=== PATIENT | female | born 1995 | race Caucasian/White ===

== ENCOUNTER 2017-03-19 17:00 | Emergency (ER) | payer OTHER ==
[2017-03-19 17:16] VITALS: BP 126/76
--- NOTE | 2017-03-19 17:31 | PHYS DOC ---
Adult General Chief Complaint Chief Complaint: WRIST PAIN HPI HPI 21-year-old female patient states she moved a heavy box 5 days ago while she was at work and her wrist was bending over and since then she has pain that does not getting better and her pain increased with movement of allergies. Patient denies neuro deficit and other injuries. Review of Systems Review of Systems Constitutional: Denies fever or chills [] Eyes: Denies change in visual acuity, redness, or eye pain [] HENT: Denies nasal congestion or sore throat [] Respiratory: Denies cough or shortness of breath [] Cardiovascular: No additional information not addressed in HPI [] GI: Denies abdominal pain, nausea, vomiting, bloody stools or diarrhea [] : Denies dysuria or hematuria [] Musculoskeletal: Reports joint pain [] Integument: Denies rash or skin lesions [] Neurologic: Denies headache, focal weakness or sensory changes [] Endocrine: Denies polyuria or polydipsia [] All other systems were reviewed and found to be within normal limits, except as documented in this note. Physical Exam Physical Exam Constitutional: Well developed, well nourished,mild distress, non-toxic appearance. [] HENT: Normocephalic, atraumatic, bilateral external ears normal, oropharynx moist, no oral exudates, nose normal. [] Eyes: PERRLA, EOMI, conjunctiva normal, no discharge. [] Neck: Normal range of motion, no tenderness, supple, no stridor. [] Cardiovascular:Heart rate regular rhythm, no murmur [] Lungs & Thorax: Bilateral breath sounds clear to auscultation [] Skin: Warm, dry, no erythema, no rash. [] Extremities: No tenderness, no deformity of right wrist , ROM intact, no edema. [] Neurologic: Alert and oriented X 3, normal motor function, normal sensory function, no focal deficits noted. [] Psychologic: Affect normal, judgement normal, mood normal. [] EKG EKG [] Radiology/Procedures Radiology/Procedures [] Course & Med Decision Making Course & Med Decision Making Pertinent Imaging studies reviewed. (See chart for details) right wrist without Fx Velcro wrist splint applied by ER nurse [] Dragon Disclaimer Dragon Disclaimer This electronic medical record was generated, in whole or in part, using a voice recognition dictation system. Departure Departure: Impression: Primary Impression: Strain of wrist, right Disposition: 01 HOME, SELF-CARE (At 1742) Condition: STABLE VAZQUEZ ZARAGOZA MD Mar 19, 2017 17:31
--- NOTE | 2017-03-20 08:27 | RAD ---
Right wrist, 3 views, 03/19/2017: History: Wrist pain, injury No fracture or dislocation is identified. There is mild soft tissue swelling about the wrist. IMPRESSION: No acute bony abnormality is detected.
== END 2017-03-19 17:55 | disposition home or self-care (01) ==
LOC: ER 17:00
DX: S66.811A Strain of other specified muscles, fascia and tendons at wrist and hand level, right hand, initial encounter (principal); X58.XXXA Exposure to other specified factors, initial encounter; Y93.89 Activity, other specified; Y99.8 Other external cause status; Y92.89 Other specified places as the place of occurrence of the external cause
CPT/HCPCS: 29125; 73110; 99284-25

== ENCOUNTER 2017-05-23 16:20 | Emergency (ER) | payer OTHER ==
[~2017-05-23] VITALS: Ht 177.8 cm; Wt 85.7 kg
[2017-05-23 16:23] VITALS: BP 143/84
--- NOTE | 2017-05-23 16:45 | RAD ---
Examination: 3 views of the right shoulder History: History of shoulder injury Comparison: None available Findings/impression: The humerus head is within the glenoid. There is no obvious acute fracture or dislocation identified. There is minimal superior translation of the clavicle in relation to the acromion probably due to positioning.
--- NOTE | 2017-05-23 16:53 | PHYS DOC ---
General Chief Complaint: SHOULDER INJURY Stated Complaint: SHOULDER INJURY Time Seen by MD: 16:49 Source: patient Exam Limitations: no limitations Problems: History of Present Illness Initial Comments Patient is a 22-year-old female sent over from [facility] for right shoulder evaluation and possible dislocation. Patient states that she is double jointed and frequently dislocates her right shoulder for fun. Last night she she dislocated it for some friends and felt like she couldn't get it back in. Complains posterolateral right shoulder pain and lateral deltoid tingling she holds her arm in internal rotation and abduction and has full movement of her right elbow distally. No numbness tingling weakness or radiating symptoms she's been unwilling to try any range of motion that she feels she has to hold her right humerus up into the socket, feeling like if she lets go of the her arm will come out again. Refuses any pain medications and imaging ordered. Onset: yesterday Severity: severe Pain/Injury Location: right shoulder Method of Injury: other Modifying Factors: worse with jarring, worse with movement, improves with rest Allergies: Coded Allergies: No Known Drug Allergies (Unverified , 05/23/17) Past Medical History Medical History: no pertinent history Surgical History: tonsillectomy Social History Smoker: non-smoker Alcohol: none Drugs: none Review of Systems Constitutional: denies chills, denies diaphoresis, denies fever, denies malaise Respiratory: denies cough, denies orthopnea, denies shortness of breath Cardiovascular: denies chest pain, denies palpitations, denies syncope Gastrointestinal: denies abdominal pain, denies nausea, denies vomiting Musculoskeletal: see HPI, denies back pain Psychiatric/Neurological: see HPI Physical Exam General Appearance: WD/WN, no apparent distress HEENT: normal ENT inspection Neck: non-tender, supple Cardiovascular/Respiratory: normal peripheral pulses, no respiratory distress Shoulder: soft tissue tenderness (exam undertaken after images reviewed. Tenderness elicited at the supraspinatus muscle, no bony tenderness swelling or ecchymosis. Popping clicking posterolaterally consistent with possible capsular injury. Patient was able to achieve full active range of motion and rotator cuff tendons appear to be at least partially intact 4. The extremity is neurovascularly intact. Positive apprehension sign.) Neurologic/Tendon: normal sensation, normal motor functions, normal tendon functions, responds to pain, no evidence tendon injury, withdraws to pain Psychiatric: alert, oriented x 3 Skin: normal color, warm/dry Orders, Labs, Meds Right shoulder: Questionable acromioclavicular joint separation, no dislocation or acute fracture noted. Interpreted by me. I discussed the likelihood of soft tissue injury, questionable supraspinatus muscle strain versus partial tear, possible capsular injury. A sling placed patient neurovascularly intact afterwards. He refuses pain medication. She will follow-up at [facility] in 1-2 weeks for recheck, may need MR arthrogram if symptoms are not improving. Discussed signs and symptoms to monitor as well as indications for urgent return to the department. Discouraged her from trying to dislocated further. Discussed doop-lql-wroqhlk medications and icing as well as activity restrictions. Her questions were answered to her satisfaction and she expressed agreement and understanding of the treatment plan. Departure Time of Disposition: 16:50 Disposition: 01 HOME, SELF-CARE Diagnosis: Internal Derangement R Shoulder NOS, Condition: GOOD Patient Instructions: ADRIANA - Routine Care for Injuries, [id number], Shoulder Pain, [id number]-[id number] Additional Instructions: Please review the patient education materials given by ED staff. As discussed, it appears to have a supraspinatus muscle strain and possible capsular injury. ADRIANA, see handout. No use of right arm and wear sling until cleared by your doctor. [id number] Tylenol and ibuprofen as needed. Follow-up with your doctor next week for recheck. May need MR arthrogram if symptoms do not improve. Return to ED with new or changing symptoms. ANGELA MCDONALD DO May 23, 2017 16:53
== END 2017-05-23 16:58 | disposition home or self-care (01) ==
LOC: ER 16:20
DX: M24.811 Other specific joint derangements of right shoulder, not elsewhere classified (principal)
CPT/HCPCS: 73030; 99284

== ENCOUNTER 2017-10-31 12:41 | Emergency (ER) | payer OTHER ==
[~2017-10-31] VITALS: Ht 188 cm; Wt 85.3 kg
[2017-10-31] MEDS ORDERED: IV NORMAL SALINE 1,000ML 1,000 ML IV ONE (14:00)
[2017-10-31] MEDS ORDERED: MORPHINE SULFATE 4 MG/ML DISP.SYRIN. IV ONE (14:00)
[2017-10-31] MEDS ORDERED: ONDANSETRON PF 4 MG/2 ML VIAL. IV ONE (14:00)
--- NOTE | 2017-10-31 14:07 | PHYS DOC ---
Past History Past Medical History: No Pertinent History Past Surgical History: Tonsillectomy Alcohol Use: None Drug Use: None Adult General Chief Complaint Chief Complaint: ABDOMINAL PAIN HPI HPI Patient is a very pleasant 22-year-old female who presents for evaluation of left and right lower quadrant abdominal pain. She had blood work and urine test done in her PCPs office and was sent here for a CT of her abdomen and pelvis to rule out an acute appendicitis. She states that she has no appetite. She denies fevers or chills, rectal bleeding, pelvic pain/bleeding/discharge, chest pain or shortness of breath, urinary symptoms, hematuria, or dizziness. She states that there is no chance that she is . She is alert and oriented 3, calm , appears to be no distress. She appears comfortable this time but states that she has no appetite. Review of Systems Review of Systems Constitutional: Denies fever or chills [] denies appetite Eyes: Denies change in visual acuity, redness, or eye pain [] HENT: Denies nasal congestion or sore throat [] Respiratory: Denies cough or shortness of breath [] Cardiovascular: No additional information not addressed in HPI [] GI: Denies vomiting, bloody stools or diarrhea [] +abd pain and nausea : Denies dysuria or hematuria [] Musculoskeletal: Denies back pain or joint pain [] Integument: Denies rash or skin lesions [] Neurologic: Denies headache, focal weakness or sensory changes [] Endocrine: Denies polyuria or polydipsia [] All other systems were reviewed and found to be within normal limits, except as documented in this note. Current Medications Current Medications Current Medications Medications (Trade) Dose Ordered Sig/Karuna Start Time Stop Time Status Last Admin Dose Admin Morphine Sulfate (Morphine 4mg Syringe) 4 mg 1X ONCE 10/31/17 14:00 10/31/17 14:01 UNV Ondansetron HCl (Zofran) 4 mg 1X ONCE 10/31/17 14:00 10/31/17 14:01 UNV Sodium Chloride 1,000 ml @ 1,000 mls/hr 1X ONCE 10/31/17 14:00 10/31/17 14:59 UNV Allergies Allergies Allergies Coded Allergies Type Severity Reaction Last Updated Verified No Known Drug Allergies 05/23/17 No Physical Exam Physical Exam Constitutional: Well developed, well nourished, no acute distress, non-toxic appearance. [] HENT: Normocephalic, atraumatic, bilateral external ears normal, oropharynx moist, no oral exudates, nose normal. [] Eyes: PERRLA, EOMI, conjunctiva normal, no discharge. [] Neck: Normal range of motion, no tenderness, supple, no stridor. [] Cardiovascular:Heart rate regular rhythm, no murmur [] Lungs & Thorax: Bilateral breath sounds clear to auscultation [] Abdomen: Bowel sounds normal, soft, no masses, no pulsatile masses. [] +LLQ and RLQ ttp, more tender in LLQ Skin: Warm, dry, no erythema, no rash. [] Back: No tenderness, no CVA tenderness. [] Extremities: No tenderness, no cyanosis, no clubbing, ROM intact, no edema. [] Neurologic: Alert and oriented X 3, normal motor function, normal sensory function, no focal deficits noted. [] Psychologic: Affect normal, judgement normal, mood normal. [] EKG EKG [] Radiology/Procedures Radiology/[place] [address] IMAGING REPORT Signed PATIENT: AKASH VELAZCO ACCOUNT: [id number] : 1995 LOCATION: ER AGE: 22 SEX: F EXAM STATUS: REG ER ORD. PHYSICIAN: ASAF NIXON DO REASON: LLQ and RLQ pain, sent from PCP office for CT to r/o appy PROCEDURE: CT ABD PELV W/ IV CONTRST ONLY CT ABD PELV W/ IV CONTRST ONLY Indication: rt lower abd/pelvic pain. LMP 10-23-2017. OMNI 300/75ml . Right lower quadrant and left lower quadrant pain. Exposure: One or more of the following individualized dose reduction techniques were utilized for this examination: 1. Automated exposure control 2. Adjustment of the mA and/or kV according to patient size 3. Use of iterative reconstruction technique. Comparison: None are available. Contrast: Intravenous contrast was given. No oral contrast per request. FINDINGS: Lower thorax: Lung bases are clear. Liver: Unremarkable Spleen: Unremarkable Pancreas: Unremarkable Adrenals:No evidence of mass. Kidneys:Unremarkable Gallbladder: No calcified stone Lymph nodes: Small mesenteric lymph nodes, measuring up to 6 mm short axis. No definite pathologic lymph node enlargement. Vessels: * Aorta: Nonaneurysmal * Mesenteric: Patent * Portal venous: Patent GI tract: No evidence of acute colitis. No evidence of bowel obstruction. Mild retained stool, particularly in the rectum and sigmoid colon. No evidence of acute colitis. No bowel obstruction. Appendix is normal. Reproductive organs: Low-density lesions in the right adnexa, largest measures 0 Hounsfield units and 3.7 cm diameter. Low-density lesions in the left adnexa, largest measures 2.9 cm diameter and 16 Hounsfield units. Urinary bladder: Unremarkable. Peritoneum: No evidence of pneumoperitoneum. No free fluid. Abdominal wall:Unremarkable Spine: Vertebral body height and alignment are intact. Bones: No destructive process identified. IMPRESSION: 1. Low-density lesions in the bilateral adnexa, largest on the right 3.7 cm, most likely ovarian cysts. 2. Appendix is normal. 3. Borderline mesenteric lymph node enlargement. No definite pathologic lymph node infiltration is seen however. Electronically signed by: Pierre Mendoza MD (10/31/2017 2:57 PM) [id number] DICTATED AND SIGNED BY: PIERRE MENDOZA MD DATE: 10/31/17 1434 CC: ASAF NIXON DO; REBEKAH HARDY DO ~ Course & Med Decision Making Course & Med Decision Making Pertinent Labs and Imaging studies reviewed. (See chart for details) Laboratory Tests Test 10/31/17 15:06 White Blood Count 8.9 x10^3/uL Red Blood Count 4.52 x10^6/uL Hemoglobin 13.8 g/dL Hematocrit 40.4 % Mean Corpuscular Volume 89 fL Mean Corpuscular Hemoglobin 31 pg Mean Corpuscular Hemoglobin Concent 34 g/dL Red Cell Distribution Width 12.4 % Platelet Count 202 x10^3/uL Neutrophils (%) (Auto) 57 % Lymphocytes (%) (Auto) 32 % Monocytes (%) (Auto) 9 % Eosinophils (%) (Auto) 2 % Basophils (%) (Auto) 0 % Neutrophils # (Auto) 5.1 x10^3uL Lymphocytes # (Auto) 2.8 x10^3/uL Monocytes # (Auto) 0.8 x10^3/uL Eosinophils # (Auto) 0.2 x10^3/uL Basophils # (Auto) 0.0 x10^3/uL Sodium Level 136 mmol/L Potassium Level 3.7 mmol/L Chloride Level 104 mmol/L Carbon Dioxide Level 27 mmol/L Anion Gap 5 Blood Urea Nitrogen 10 mg/dL Creatinine 0.7 mg/dL Estimated GFR (Cockcroft-Gault) 106.7 BUN/Creatinine Ratio 14 Glucose Level 80 mg/dL Calcium Level 8.9 mg/dL Total Bilirubin 0.8 mg/dL Aspartate Amino Transf (AST/SGOT) 16 U/L Alanine Aminotransferase (ALT/SGPT) 18 U/L Alkaline Phosphatase 86 U/L Total Protein 6.6 g/dL Albumin 3.9 g/dL Albumin/Globulin Ratio 1.4 Lipase 79 U/L Current Medications Medications (Trade) Dose Ordered Sig/Karuna Route PRN Reason Start Time Stop Time Status Last Admin Dose Admin Morphine Sulfate (Morphine 4mg Syringe) 4 mg 1X ONCE IV 10/31/17 14:00 10/31/17 14:06 DC 10/31/17 14:52 Ondansetron HCl (Zofran) 4 mg 1X ONCE IV 10/31/17 14:00 10/31/17 14:06 DC 10/31/17 14:51 Sodium Chloride 1,000 ml @ 1,000 mls/hr 1X ONCE IV 10/31/17 14:00 10/31/17 14:59 DC 10/31/17 14:51 Iohexol (Omnipaque 300 Mg/ml) 75 ml 1X ONCE IV 10/31/17 14:15 10/31/17 14:16 DC 10/31/17 14:14 @1540 - patient and mother updated on lab and imaging results which are essentially unremarkable. The patient states she is feeling better and wants to go home. Workup today fails to reveal any emergent pathology. The patient is stable for discharge. Lymph nodes could be an indicator of mesenteric lymphadenitis. Additionally the patient's ovarian cyst could be causing her some pain. I did offer to perform a pelvic exam for additional information that she declines. Advised the patient to follow up with her PCP in the next 1-2 days. Dragon Disclaimer Dragon Disclaimer This electronic medical record was generated, in whole or in part, using a voice recognition dictation system. Departure Departure: Impression: Primary Impression: Abdominal pain Disposition: HOME, SELF-CARE Condition: STABLE Referrals: REBEKAH HARDY DO (PCP) Patient Instructions: Abdominal Pain (Nonspecific), Mesenteric Adenitis Additional Instructions: Take the medication as prescribed, as needed. Return to the ER for new or worsening symptoms. Follow up with your doctor in the next 1-2 days. Scripts Tramadol Hcl (ULTRAM) 50 Mg Tablet 50 MG PO PRN Q6HRS PRN for PAIN, #12 TAB Prov: ASAF NIXON DO 10/31/17 ASAF NIXON DO Oct 31, 2017 14:07
[2017-10-31] MEDS ORDERED: IOHEXOL 300 MG/ML 75 ML VIAL. IV ONE (14:15)
--- NOTE | 2017-10-31 15:00 | RAD ---
CT ABD PELV W/ IV CONTRST ONLY Indication: rt lower abd/pelvic pain. LMP 10-23-2017. OMNI 300/75ml . Right lower quadrant and left lower quadrant pain. Exposure: One or more of the following individualized dose reduction techniques were utilized for this examination: 1. Automated exposure control 2. Adjustment of the mA and/or kV according to patient size 3. Use of iterative reconstruction technique. Comparison: None are available. Contrast: Intravenous contrast was given. No oral contrast per request. FINDINGS: Lower thorax: Lung bases are clear. Liver: Unremarkable Spleen: Unremarkable Pancreas: Unremarkable Adrenals:No evidence of mass. Kidneys:Unremarkable Gallbladder: No calcified stone Lymph nodes: Small mesenteric lymph nodes, measuring up to 6 mm short axis. No definite pathologic lymph node enlargement. Vessels: * Aorta: Nonaneurysmal * Mesenteric: Patent * Portal venous: Patent GI tract: No evidence of acute colitis. No evidence of bowel obstruction. Mild retained stool, particularly in the rectum and sigmoid colon. No evidence of acute colitis. No bowel obstruction. Appendix is normal. Reproductive organs: Low-density lesions in the right adnexa, largest measures 0 Hounsfield units and 3.7 cm diameter. Low-density lesions in the left adnexa, largest measures 2.9 cm diameter and 16 Hounsfield units. Urinary bladder: Unremarkable. Peritoneum: No evidence of pneumoperitoneum. No free fluid. Abdominal wall:Unremarkable Spine: Vertebral body height and alignment are intact. Bones: No destructive process identified. IMPRESSION: 1. Low-density lesions in the bilateral adnexa, largest on the right 3.7 cm, most likely ovarian cysts. 2. Appendix is normal. 3. Borderline mesenteric lymph node enlargement. No definite pathologic lymph node infiltration is seen however. Electronically signed by: Pierre Mendoza MD (10/31/2017 2:57 PM) [id number]
[2017-10-31 15:20] LABS: BASO % 0 % (0-3); EOS # 0.2 x10^3/uL (0.0-0.7); EOS % 2 % (0-3); HEMATOCRIT 40.4 % (36.0-47.0); HEMOGLOBIN 13.8 g/dL (12.0-15.5); LYMPH # 2.8 x10^3/uL (1.0-4.8); LYMPH % 32 % (24-48); MEAN CORPUSCULAR HEMOGLOBIN 31 pg (25-35); MEAN CORPUSCULAR HGB CONC 34 g/dL (31-37); MEAN CORPUSCULAR VOLUME 89 fL (79-100); MONO # 0.8 x10^3/uL (0.0-1.1); MONO % 9 % (0-9); NEUT # 5.1 x10^3uL (1.8-7.7); NEUT % 57 % (31-73); PLATELET COUNT 202 x10^3/uL (140-400); RED BLOOD COUNT 4.52 x10^6/uL (3.50-5.40); RED CELL DISTRIBUTION WIDTH 12.4 % (11.5-14.5); WHITE BLOOD COUNT 8.9 x10^3/uL (4.0-11.0)
[2017-10-31 15:33] LABS: ALBUMIN 3.9 g/dL (3.4-5.0); ALBUMIN/GLOBULIN RATIO 1.4 (1.0-1.7); CALCIUM 8.9 mg/dL (8.5-10.1); CREATININE 0.7 mg/dL (0.6-1.0); GFR 106.7; POTASSIUM 3.7 mmol/L (3.5-5.1); TOTAL BILIRUBIN 0.8 mg/dL (0.2-1.0); TOTAL PROTEIN 6.6 g/dL (6.4-8.2)
[2017-10-31] MEDS ORDERED: TRAM-48 PO (15:46)
[2017-10-31 16:28] VITALS: BP 121/76
[2017-11-01] MEDS ORDERED: ONDA4TAB10 SL (20:07)
[2017-11-01] MEDS ORDERED: HYDR-971 PO (20:07)
== END 2017-10-31 16:10 | disposition home or self-care (01) ==
LOC: ER 12:41
DX: R10.32 Left lower quadrant pain (principal); R10.31 Right lower quadrant pain; R11.0 Nausea
CPT/HCPCS: 36415; 74177; 80053; 83690; 85025; 96374; 96375; 99285; J2270; J2405; Q9967; J7030

== ENCOUNTER 2017-11-01 17:05 | Emergency (ER) | payer OTHER ==
[~2017-11-01] VITALS: Ht 188 cm; Wt 85.3 kg
[~2017-11-01 17:05] MED LIST: TRAM-48 PO
[2017-11-01] MEDS ORDERED: IV NORMAL SALINE 1,000ML 1,000 ML IV SCH (17:13)
--- NOTE | 2017-11-01 17:29 | PHYS DOC ---
Past History Past Medical History: No Pertinent History Past Surgical History: Tonsillectomy Alcohol Use: None Drug Use: None Adult General Chief Complaint Chief Complaint: ABDOMINAL PAIN HPI HPI Patient is a 22-year-old female who presents for evaluation of right lower quadrant abdominal pain which she rates at an 8 out of 10 and is not radiating. She says she has had no appetite and has not been able to eat anything. She was seen here in the emergency department yesterday for the same complaints. A CT of the abdomen and pelvis was performed which showed some inflamed lymph nodes in the lower abdomen suggesting possible mesenteric adenitis but no other acute findings. She says she has not had a bowel movement in about 3 days. She is alert and oriented 4, calm, and appears to be no distress. She denies pelvic pain/bleeding/discharge, back or flank pain, chest pain or shortness of breath, hematemesis or rectal bleeding. She is having some dysuria today which she did not have yesterday. Review of Systems Review of Systems Constitutional: Denies fever or chills [] Eyes: Denies change in visual acuity, redness, or eye pain [] HENT: Denies nasal congestion or sore throat [] Respiratory: Denies cough or shortness of breath [] Cardiovascular: No additional information not addressed in HPI [] GI: Denies bloody stools or diarrhea [] +abd pain, n/v : Denies dysuria or hematuria [] Musculoskeletal: Denies back pain or joint pain [] Integument: Denies rash or skin lesions [] Neurologic: Denies headache, focal weakness or sensory changes [] Endocrine: Denies polyuria or polydipsia [] All other systems were reviewed and found to be within normal limits, except as documented in this note. Current Medications Current Medications Current Medications Medications (Trade) Dose Ordered Sig/Karuna Start Time Stop Time Status Last Admin Dose Admin Ketorolac Tromethamine (Toradol) 30 mg 1X ONCE 11/01/17 17:15 11/01/17 17:16 UNV Ondansetron HCl (Zofran) 4 mg 1X ONCE 11/01/17 17:15 11/01/17 17:16 UNV Sodium Chloride 1,000 ml @ 1,000 mls/hr Q1H 11/01/17 17:13 11/01/17 18:12 UNV Allergies Allergies Allergies Coded Allergies Type Severity Reaction Last Updated Verified No Known Drug Allergies 05/23/17 No Physical Exam Physical Exam Constitutional: Well developed, well nourished, no acute distress, non-toxic appearance. [] appears somewhat dehydrated HENT: Normocephalic, atraumatic, bilateral external ears normal, oropharynx moist, no oral exudates, nose normal. [] Eyes: PERRLA, EOMI, conjunctiva normal, no discharge. [] Neck: Normal range of motion, no tenderness, supple, no stridor. [] Cardiovascular:Heart rate regular rhythm, no murmur [] Lungs & Thorax: Bilateral breath sounds clear to auscultation [] Abdomen: Bowel sounds normal, soft, no masses, no pulsatile masses. [] +RLQ and LLQ tenderness present, soft, no guarding, +heel tap, no rigidity, no distention Skin: Warm, dry, no erythema, no rash. [] Back: No tenderness, no CVA tenderness. [] Extremities: No tenderness, no cyanosis, no clubbing, ROM intact, no edema. [] Neurologic: Alert and oriented X 3, normal motor function, normal sensory function, no focal deficits noted. [] Psychologic: Affect normal, judgement normal, mood normal. [] Current Patient Data Vital Signs Vital Signs Date Time Temp Pulse Resp B/P (MAP) Pulse Ox O2 Delivery O2 Flow Rate FiO2 11/01/17 17:13 98.3 64 20 100 Room Air EKG EKG [] Radiology/Procedures Radiology/Procedures [][address] [address] IMAGING REPORT Signed PATIENT: AKASH VELAZCO ACCOUNT: [id number] : 1995 LOCATION: ER AGE: 22 SEX: F EXAM STATUS: REG ER ORD. PHYSICIAN: ASAF NIXON DO REASON: rlq abd pain, n/v PROCEDURE: CT ABD PELV W/ORAL&IV CONTRAST Indication:Right lower quadrant abdominal pain with nausea and vomiting. TECHNIQUE: CT abdomen and pelvis with IV contrast with multiplanar reformats. COMPARISON: Previous study from 10/31/2017 FINDINGS: Heart is normal in size. No pericardial or pleural effusion. Clear lung bases. Liver, spleen, gallbladder, pancreas, adrenals and kidneys are within normal limits. No retroperitoneal or pelvic adenopathy. No bowel obstruction. Normal appendix. No free pelvic fluid or ascites. Redemonstrated are low attenuating lesions in the bilateral kidneys, the largest on the right measuring 4.0 x 3.5 cm and the left measuring 3.2 x 2.8 cm. Anteverted uterus. Urinary bladder within normal limits. No suspicious bony lesion. IMPRESSION: 1. No acute findings. 2. Bilateral adnexal cystic lesions. Please see ultrasound report from the same day. Electronically signed by: Luis Dhaliwal DO (11/01/2017 7:42 PM) [facility] DICTATED AND SIGNED BY: LUIS DHALIWAL DO DATE: 11/01/171937 CC: ASAF NIXON DO; VAZQUEZ ZARAGOZA MD; REBEKAH [place]Y DO ~ [place] [address] IMAGING REPORT Signed PATIENT: AKASH VELAZCO ACCOUNT: [id number] : 1995 LOCATION: ER AGE: 22 SEX: F EXAM STATUS: REG ER ORD. PHYSICIAN: ASAF NIXON DO REASON: right and left adnexal pain, eval for torsion PROCEDURE: US PELVIS W/TV Transabdominal and transvaginal sonography of the pelvis Clinical indications: Pelvic pain. Right lower quadrant pain. Transabdominal sonography: The uterus is anteverted in position. Longitudinal and AP and transverse dimensions of the uterus are 6.1 cm and 3.2 cm and 4.2 cm respectively. The endometrial canal measures 4.5 mm in thickness. There is a cyst of the right ovary. Therefore, transvaginal sonography will be performed. The right ovary measures 5.4 cm and 4.1 cm and 5.7 cm in size. The left ovary contains 2 cysts. The left ovary measures 3.4 cm and 4.7 cm and 5.5 cm in size. No free fluid is evident. Transvaginal sonography: The endometrial canal is not abnormally thickened. No uterine mass or fibroid is seen. Small amount of free fluid is seen within the cul-de-sac. The cyst within the right ovary measures 4.2 cm in size and is simple in appearance. Color Doppler flow is seen within the right ovarian parenchyma around the cyst. The smaller cyst within the left ovary measures 2.7 cm in size and contains small echoes which may represent blood or debris.. The larger cyst of the left ovary measures 2.9 cm in size and there is a peripheral cumulus oophorus consistent with a corpus luteum cyst. Color Doppler flow is seen within the left ovarian parenchyma. IMPRESSION: Bilateral ovarian cysts. There is one cyst within the left ovary which is mildly hemorrhagic or complex measuring 2.7 cm in size. Color Doppler flow is seen within both ovaries. Small amount of free fluid is seen within the cul-de-sac. Electronically signed by: Juan Jose Kapoor MD (11/01/2017 6:28 PM) [facility] DICTATED AND SIGNED BY: JUAN JOSE KAPOOR MD DATE: 11/01/171822 CC: ASAF NIXON DO; VAZQUEZ ZARAGOZA MD; REBEKAH HARDY DO ~ Course & Med Decision Making Course & Med Decision Making Pertinent Labs and Imaging studies reviewed. (See chart for details) @181 - Pt care handed over from Dr. Nixon to Dr. Zaragoza at this time. Awaiting ultrasound, CT, and lab results. This will help to rule out ovarian pathology or appendicitis. @2009 - patient did not have positive Fozia's sign or tenderness of her abdomen. Patient CT and ultrasound showed hemorrhagic left ovarian cyst with small amount of fluid in pelvic. Patient treated with fentanyl and felt better. Patient instructed to not taking Ultram and prescription for Winside and Zofran was given.(written by Dr Zaragoza) Dragon Disclaimer Dragon Disclaimer This electronic medical record was generated, in whole or in part, using a voice recognition dictation system. Departure Departure: Impression: Primary Impression: Right lower quadrant abdominal pain Additional Impression: Hemorrhagic cyst of left ovary Disposition: HOME, SELF-CARE (At 2002) Condition: IMPROVED Referrals: REBEKAH HARDY DO (PCP) Patient Instructions: Ovarian Cyst Additional Instructions: Drink plenty of liquids Follow-up with your primary care physician in 3-5 days Return to ER if not getting better Scripts Ondansetron (ZOFRAN ODT) 4 Mg Tab.rapdis 1 TAB SL Q8HRS, #15 TAB Prov: VAZQUEZ ZARAGOZA MD 11/01/17 Hydrocodone Bit/Acetaminophen (NORCO 5-325 TABLET) 1 Each Tablet 1 TAB PO PRN Q6HRS PRN for PAIN, #14 TAB 0 Refills Prov: VAZQUEZ ZARAGOZA MD 11/01/17 Problem Qualifiers ASAF NIXON DO Nov 01, 2017 17:29 VAZQUEZ ZARAGOZA MD Nov 01, 2017 20:08
[2017-11-01] MEDS ORDERED: KETOROLAC 30 MG/ML VIAL. IV ONE (17:45)
[2017-11-01] MEDS ORDERED: ONDANSETRON PF 4 MG/2 ML VIAL. IV ONE (17:45)
[2017-11-01 17:50] LABS: BASO % 0 % (0-3); EOS # 0.2 x10^3/uL (0.0-0.7); EOS % 2 % (0-3); HEMATOCRIT 40.9 % (36.0-47.0); HEMOGLOBIN 13.7 g/dL (12.0-15.5); LYMPH # 2.8 x10^3/uL (1.0-4.8); LYMPH % 25 % (24-48); MEAN CORPUSCULAR HEMOGLOBIN 30 pg (25-35); MEAN CORPUSCULAR HGB CONC 33 g/dL (31-37); MEAN CORPUSCULAR VOLUME 90 fL (79-100); MONO # 0.9 x10^3/uL (0.0-1.1); MONO % 8 % (0-9); NEUT # 7.2 x10^3uL (1.8-7.7); NEUT % 65 % (31-73); PLATELET COUNT 205 x10^3/uL (140-400); RED BLOOD COUNT 4.55 x10^6/uL (3.50-5.40); RED CELL DISTRIBUTION WIDTH 12.6 % (11.5-14.5); WHITE BLOOD COUNT 11.1 x10^3/uL (4.0-11.0)
[2017-11-01 18:04] LABS: ALBUMIN 3.9 g/dL (3.4-5.0); ALBUMIN/GLOBULIN RATIO 1.4 (1.0-1.7); CALCIUM 8.9 mg/dL (8.5-10.1); CREATININE 0.7 mg/dL (0.6-1.0); GFR 106.7; POTASSIUM 3.7 mmol/L (3.5-5.1); TOTAL BILIRUBIN 0.7 mg/dL (0.2-1.0); TOTAL PROTEIN 6.6 g/dL (6.4-8.2)
[2017-11-01 18:24] LABS: BILIRUBIN,URINE NEG (NEG); CLARITY,URINE CLOUDY; COLOR,URINE YELLOW; GLUCOSE,URINE NEG (NEG)
[2017-11-01 18:25] LABS: AMORPHOUS SEDIMENT,UR PRESENT /HPF; BACTERIA,URINE FEW /HPF (0-FEW); NITRITE,URINE NEG (NEG); SQUAMOUS EPITHELIAL CELL,UR FEW /LPF; UROBILINOGEN,URINE 1 mg/dL (0.2 mg/dL)
[2017-11-01] MEDS ORDERED: IOHEXOL 240 MG/ML 50ML VIAL. ONE (18:26)
[2017-11-01] MEDS ORDERED: IOHEXOL 300 MG/ML 75 ML VIAL. IV ONE (18:30)
--- NOTE | 2017-11-01 18:32 | RAD ---
Transabdominal and transvaginal sonography of the pelvis Clinical indications: Pelvic pain. Right lower quadrant pain. Transabdominal sonography: The uterus is anteverted in position. Longitudinal and AP and transverse dimensions of the uterus are 6.1 cm and 3.2 cm and 4.2 cm respectively. The endometrial canal measures 4.5 mm in thickness. There is a cyst of the right ovary. Therefore, transvaginal sonography will be performed. The right ovary measures 5.4 cm and 4.1 cm and 5.7 cm in size. The left ovary contains 2 cysts. The left ovary measures 3.4 cm and 4.7 cm and 5.5 cm in size. No free fluid is evident. Transvaginal sonography: The endometrial canal is not abnormally thickened. No uterine mass or fibroid is seen. Small amount of free fluid is seen within the cul-de-sac. The cyst within the right ovary measures 4.2 cm in size and is simple in appearance. Color Doppler flow is seen within the right ovarian parenchyma around the cyst. The smaller cyst within the left ovary measures 2.7 cm in size and contains small echoes which may represent blood or debris.. The larger cyst of the left ovary measures 2.9 cm in size and there is a peripheral cumulus oophorus consistent with a corpus luteum cyst. Color Doppler flow is seen within the left ovarian parenchyma. IMPRESSION: Bilateral ovarian cysts. There is one cyst within the left ovary which is mildly hemorrhagic or complex measuring 2.7 cm in size. Color Doppler flow is seen within both ovaries. Small amount of free fluid is seen within the cul-de-sac. Electronically signed by: Deonte Kapoor MD (11/01/2017 6:28 PM) [facility]
[2017-11-01] MEDS ORDERED: CONTRAST GIVEN MC PRN (18:45)
[2017-11-01] MEDS ORDERED: IOHEXOL 240 MG/ML 50ML VIAL. PO ONE (18:45)
[2017-11-01 18:50] VITALS: BP 119/73
--- NOTE | 2017-11-01 19:46 | RAD ---
Indication:Right lower quadrant abdominal pain with nausea and vomiting. TECHNIQUE: CT abdomen and pelvis with IV contrast with multiplanar reformats. COMPARISON: Previous study from 10/31/2017 FINDINGS: Heart is normal in size. No pericardial or pleural effusion. Clear lung bases. Liver, spleen, gallbladder, pancreas, adrenals and kidneys are within normal limits. No retroperitoneal or pelvic adenopathy. No bowel obstruction. Normal appendix. No free pelvic fluid or ascites. Redemonstrated are low attenuating lesions in the bilateral kidneys, the largest on the right measuring 4.0 x 3.5 cm and the left measuring 3.2 x 2.8 cm. Anteverted uterus. Urinary bladder within normal limits. No suspicious bony lesion. IMPRESSION: 1. No acute findings. 2. Bilateral adnexal cystic lesions. Please see ultrasound report from the same day. Electronically signed by: Luis Dhaliwal DO (11/01/2017 7:42 PM) [facility]
[2017-11-01] MEDS ORDERED: HYDR-971 PO (20:07)
[2017-11-01] MEDS ORDERED: ONDA4TAB10 SL (20:07)
== END 2017-11-01 20:18 | disposition home or self-care (01) ==
LOC: ER 17:05
DX: N83.202 Unspecified ovarian cyst, left side (principal)
CPT/HCPCS: 36415; 74177; 76830; 76856; 80053; 81001; 83690; 85025; 96361; 96374; 96375; 99285; J1885; J2405; J3010; Q9966; Q9967; J7030